=== PATIENT | male | born 1970 | race Caucasian/White ===

== ENCOUNTER → 2018-07-23 | Outpatient (CLI) | payer OTHER ==
[2018-07-23] VITALS (7 sets, daily range): BP systolic 106–126; BP diastolic 68–80
--- NOTE | 2018-07-23 13:49 | EKG ---
[place] [address] ELECTROCARDIOGRAM REPORT Name: COLLINS DWYER Room: [facility]#: [id number] Admission: 07/23/18 Attend Phys: Arya Fregoso MD, Discharge: Date of : 66 Report #: [id number] THIS REPORT FOR: //name// [facility] Test Date: 2018-07-23 Test Time: 13:23:35 Pat Name: COLLINS DWYER Department: Room: Gender: M Diesel Engineer: : 1970 Requested By: Collins Dejesus Order Number: [id number] Reading MD: Rey Hurtado Measurements Intervals [place] Rate: 70 P: NV: QRS: 8 QRSD: 101 T: 79 QT: 388 QTc: 419 Interpretive Statements Atrial fibrillation Abnormal lateral Q waves Probable anterior infarct, age indeterminate No previous ECG available for comparison Electronically Signed On 07-23-2018 13:48:57 CDT by Rey Hurtado [email or web address] <ELECTRONICALLY SIGNED> By: Rey Hurtado MD, [facility] 07/23/18 1348 1323 1323 Rey Hurtado MD, FACC /EPI
--- NOTE | 2018-07-23 18:46 | TEE ---
[place] [address] TRANSESOPHAGEAL ECHOCARDIOGRAM Name: COLLINS DWYER Room: [facility]#: [id number] Admission: 07/23/18 Attend Phys: Anam Skinner Discharge: Date of : 66 Date of Service: 07/23/18 1846 Report #: [id number] THIS REPORT FOR: //name// APPROVED REPORT Study performed: 07/23/2018 13:31:42 EXAM: Transesophageal Echocardiogram Patient Location: Out-Patient Status: routine BSA: 2.33 HR: 75 bpm BP: 116/72 mmHg Rhythm: Atrial Fibrillation Other Information Study Quality: Good Indications Atrial Fibrillation PRE-ABLATION Echo Enhancing Agent Indication: Rule out Shunt Agent(s) / Amount(s) Used: Agitated Saline 10 cc Procedure After obtaining informed consent, patient underwent transesophageal echo in the [employer]. Type of Sedation : Conscious Sedation Sedation was administered by Erna Archer RN. Sedation start time: 1332 Case end Time: 1347 Sedation was achieved intravenously with: Versed (5) Fentanyl (125) Transesophageal probe was inserted and advanced into esophagus without difficulty by Collins Dejesus MD, FACC. Echo enhancement indication: R/O Septal defect. Echo enhancement agent administered: Agitated Saline The LISA was performed without complications. Throughout the procedure, the blood pressure, pulse oximetry, cardiac rhythm, and rate were monitored. The patient tolerated the procedure without adverse effects. Recovery from conscious sedation was uneventful and vital signs were stable. [place] [id number] TRANSESOPHAGEAL ECHOCARDIOGRAM Name: COLLINS DWYER [id number] Admission: 07/23/18 Attend Phys: Anam Skinner Discharge: Date of : 66 Date of Service: 07/23/18 1846 Report #: [id number] Left Ventricle The left ventricle is normal size. There is normal LV segmental wall motion. There is normal left ventricular wall thickness. Left ventricular systolic function is normal. LVEF is 55-60%. Right Ventricle The right ventricle is normal size. The right ventricular systolic function is normal. Atria No thrombus is visualized in the left atrium or appendage. Small PFO is noted. The right atrium size is normal. Aortic Valve The aortic valve is normal in structure. No aortic regurgitation is present. There is no aortic valvular stenosis. Mitral Valve Annuloplasty ring is noted in the mitral position. Trace mitral regurgitation. No evidence of mitral valve stenosis. Tricuspid Valve The tricuspid valve is normal in structure. Trace tricuspid regurgitation. Pulmonic Valve The pulmonary valve is normal in structure. There is no pulmonic valvular regurgitation. Great Vessels The aortic root is normal in size. Pericardium There is no pericardial effusion. <Conclusion> The left ventricle is normal size. There is normal left ventricular wall thickness. Left ventricular systolic function is normal. LVEF is 55-60%. Small PFO is noted. No thrombus is visualized in the left atrium or appendage. Annuloplasty ring is noted in the mitral position. [place] [address] TRANSESOPHAGEAL ECHOCARDIOGRAM Name: COLLINS DWYER Room: [facility]#: [id number] Admission: 07/23/18 Attend Phys: Anam Skinner Discharge: Date of : 66 Date of Service: 07/23/181845 Report #: [id number] Trace tricuspid regurgitation. The aortic root is normal in size. <ELECTRONICALLY SIGNED> By: Collins Dejesus MD, FACC 07/23/181845 45 45 Collins Dejesus MD, FACC /INF
== END | disposition home or self-care (01) ==
LOC: M.CL 12:33
DX: I08.1 Rheumatic disorders of both mitral and tricuspid valves (principal); Z79.01 Long term (current) use of anticoagulants